=== PATIENT | male | born 1935 | race Caucasian/White ===

== ENCOUNTER 2016-04-14 08:44 | Outpatient (CLI) ==
[2016-04-14 09:12] LABS: BASOPHILS # (AUTO) 0.1 K/uL (0-0.2); BASOPHILS % (AUTO) 0.5 % (0.0-3.0); EOSINOPHILS # (AUTO) 0.4 K/ul (0.0-0.7); EOSINOPHILS % (AUTO) 3.9 % (0.0-7.0); HEMATOCRIT 34.1 % (42.0-52.0); HEMOGLOBIN 11.3 g/dl (14.0-18.0); IMMATURE GRANULOCYTE % (AUTO) 0.2 % (0.0-5.0); LYMPHOCYTES # (AUTO) 1.7 K/uL (0.60-3.4); LYMPHOCYTES % (AUTO) 17.6 (10.0-50.0); MEAN CORPUSCULAR HEMOGLOBIN 30.1 pg (27.0-31.0); MEAN CORPUSCULAR HGB CONC 33.1 (31.8-35.4); MEAN CORPUSCULAR VOLUME 90.7 fl (80.0-94.0); MONOCYTES # (AUTO) 0.8 K/uL (0.4-2.0); MONOCYTES % (AUTO) 8.6 (0-10); NEUTROPHILS # (AUTO) 6.6 K/ul (2.0-6.9); NEUTROPHILS % (AUTO) 69.2; PLATELET COUNT 292 10^3/uL (140-440); RED BLOOD COUNT 3.76 10^6/ul (4.70-6.10)
[2016-04-14 10:11] LABS: ALBUMIN 2.9 g/dL (3.4-5.0); ALBUMIN/GLOBULIN RATIO 0.74; ANION GAP 14.4; BILIRUBIN,TOTAL 0.32 mg/dL (0.00-1.20); BUN/CREATININE RATIO 11.62; CREATININE 1.72 mg/dL (0.60-1.10); POTASSIUM 4.4 mmol/L (3.5-5.1); TOTAL PROTEIN 6.8 g/dL (5.8-8.1)
== END 2016-04-14 08:45 | disposition home or self-care (01) ==
LOC: LAB 08:44
PROVIDERS: ATTEND Family Medicine
DX: E78.5 Hyperlipidemia, unspecified (principal); I10 Essential (primary) hypertension; R73.9 Hyperglycemia, unspecified; E03.9 Hypothyroidism, unspecified; D64.9 Anemia, unspecified; I67.9 Cerebrovascular disease, unspecified; Z86.73 Personal history of transient ischemic attack (TIA), and cerebral infarction without residual deficits
CPT/HCPCS: 36415; 80053; 80061; 84439; 84443; 85025

== ENCOUNTER 2016-09-16 08:19 | Outpatient (CLI) ==
[2016-09-16 08:42] LABS: BASOPHILS # (AUTO) 0.1 K/uL (0-0.2); BASOPHILS % (AUTO) 0.7 % (0.0-3.0); EOSINOPHILS # (AUTO) 0.4 K/ul (0.0-0.7); EOSINOPHILS % (AUTO) 5.9 % (0.0-7.0); HEMATOCRIT 33.3 % (42.0-52.0); HEMOGLOBIN 11.5 g/dl (14.0-18.0); IMMATURE GRANULOCYTE % (AUTO) 0.1 % (0.0-5.0); LYMPHOCYTES # (AUTO) 1.7 K/uL (0.60-3.4); LYMPHOCYTES % (AUTO) 24.7 (10.0-50.0); MEAN CORPUSCULAR HEMOGLOBIN 30.8 pg (27.0-31.0); MEAN CORPUSCULAR HGB CONC 34.5 (31.8-35.4); MEAN CORPUSCULAR VOLUME 89.3 fl (80.0-94.0); MONOCYTES # (AUTO) 0.7 K/uL (0.4-2.0); MONOCYTES % (AUTO) 10.2 (0-10); NEUTROPHILS # (AUTO) 4.1 K/ul (2.0-6.9); NEUTROPHILS % (AUTO) 58.4; PLATELET COUNT 141 10^3/uL (140-440); RED BLOOD COUNT 3.73 10^6/ul (4.70-6.10); WHITE BLOOD COUNT 6.96 K/ul (4.2-10.2)
[2016-09-16 08:50] LABS: BILIRUBIN,URINE Negative (NEGATIVE); KETONES,URINE Negative (NEGATIVE); LEUKOCYTE ESTERASE ,URINE Negative (NEGATIVE); NITRITE,URINE Negative (NEGATIVE); PH,URINE 6.5 (5-9); PROTEIN,URINE 3+ (NEGATIVE); URINE, BLOOD 1+ (NEGATIVE)
[2016-09-16 08:55] LABS: ADD URINE MICROSCOPIC YES
[2016-09-16 09:24] LABS: ALBUMIN 3.1 g/dL (3.4-5.0); ALBUMIN/GLOBULIN RATIO 1.19; ANION GAP 12.2; BILIRUBIN,TOTAL 0.59 mg/dL (0.00-1.20); BUN/CREATININE RATIO 13.2; CALCIUM 8.8 mg/dL (8.2-10.2); CHOL/HDL RATIO 3.8 (4.5-6.4); CREATININE 2.12 mg/dL (0.60-1.10); POTASSIUM 4.2 mmol/L (3.5-5.1); TOTAL PROTEIN 5.7 g/dL (5.8-8.1)
== END 2016-09-16 08:20 | disposition home or self-care (01) ==
LOC: LAB 08:19
PROVIDERS: ATTEND Family Medicine
DX: E78.5 Hyperlipidemia, unspecified (principal); I10 Essential (primary) hypertension; I25.10 Atherosclerotic heart disease of native coronary artery without angina pectoris; I65.29 Occlusion and stenosis of unspecified carotid artery; E03.9 Hypothyroidism, unspecified; N18.9 Chronic kidney disease, unspecified; C80.1 Malignant (primary) neoplasm, unspecified; Z86.73 Personal history of transient ischemic attack (TIA), and cerebral infarction without residual deficits
CPT/HCPCS: 36415; 80053; 80061; 81001; 84439; 84443; 85025; 86140

== ENCOUNTER 2016-09-19 09:48 | Outpatient (CLI) | END 2016-09-19 09:49 | disposition home or self-care (01) | LOC: CAR 09:48 | PROVIDERS: ATTEND Family Medicine | DX: I10 Essential (primary) hypertension (principal); I25.10 Atherosclerotic heart disease of native coronary artery without angina pectoris; E03.9 Hypothyroidism, unspecified; I63.9 Cerebral infarction, unspecified; I49.9 Cardiac arrhythmia, unspecified; Z85.9 Personal history of malignant neoplasm, unspecified | CPT/HCPCS: 93005; 93010 ==

== ENCOUNTER 2017-03-02 06:42 | Outpatient (CLI) | END 2017-03-02 06:43 | disposition home or self-care (01) | LOC: CAR 06:42 | PROVIDERS: ATTEND Family Medicine | DX: I25.10 Atherosclerotic heart disease of native coronary artery without angina pectoris (principal); R94.31 Abnormal electrocardiogram [ECG] [EKG]; I10 Essential (primary) hypertension ==

== ENCOUNTER 2017-03-09 08:45 | Outpatient (CLI) ==
[2017-03-09 09:10] LABS: BASOPHILS # (AUTO) 0.1 K/uL (0-0.2); BASOPHILS % (AUTO) 0.8 % (0.0-3.0); EOSINOPHILS # (AUTO) 0.4 K/ul (0.0-0.7); EOSINOPHILS % (AUTO) 5.2 % (0.0-7.0); HEMATOCRIT 31.1 % (42.0-52.0); HEMOGLOBIN 10.6 g/dl (14.0-18.0); IMMATURE GRANULOCYTE % (AUTO) 0.1 % (0.0-5.0); LYMPHOCYTES # (AUTO) 1.7 K/uL (0.60-3.4); MEAN CORPUSCULAR HEMOGLOBIN 31.3 pg (27.0-31.0); MEAN CORPUSCULAR HGB CONC 34.1 (31.8-35.4); MEAN CORPUSCULAR VOLUME 91.7 fl (80.0-94.0); MONOCYTES # (AUTO) 0.7 K/uL (0.4-2.0); MONOCYTES % (AUTO) 9.3 (0-10); NEUTROPHILS # (AUTO) 4.5 K/ul (2.0-6.9); NEUTROPHILS % (AUTO) 61.6; PLATELET COUNT 191 10^3/uL (140-440); RED BLOOD COUNT 3.39 10^6/ul (4.70-6.10); WHITE BLOOD COUNT 7.35 K/ul (4.2-10.2)
[2017-03-09 09:13] LABS: BILIRUBIN,URINE Negative (NEGATIVE); KETONES,URINE Negative (NEGATIVE); LEUKOCYTE ESTERASE ,URINE Trace (NEGATIVE); NITRITE,URINE Negative (NEGATIVE); PROTEIN,URINE 3+ (NEGATIVE); URINE, BLOOD 2+ (NEGATIVE)
[2017-03-09 09:34] LABS: ADD URINE MICROSCOPIC YES
[2017-03-09 09:42] LABS: BACTERIA,URINE TRACE (NOT PRESENT)
[2017-03-09 09:53] LABS: ALBUMIN 2.9 g/dL (3.4-5.0); ALBUMIN/GLOBULIN RATIO 0.88; ANION GAP 10.9; BILIRUBIN,TOTAL 0.39 mg/dL (0.00-1.20); BUN/CREATININE RATIO 14.52; CALCIUM 8.9 mg/dL (8.2-10.2); CHOL/HDL RATIO 4.1 (4.5-6.4); CREATININE 1.79 mg/dL (0.60-1.10); POTASSIUM 3.9 mmol/L (3.5-5.1); TOTAL PROTEIN 6.2 g/dL (5.8-8.1)
== END 2017-03-09 08:46 | disposition home or self-care (01) ==
LOC: LAB 08:45
PROVIDERS: ATTEND Family Medicine
DX: E78.5 Hyperlipidemia, unspecified (principal); E03.9 Hypothyroidism, unspecified; I10 Essential (primary) hypertension; N18.9 Chronic kidney disease, unspecified; I25.10 Atherosclerotic heart disease of native coronary artery without angina pectoris; D49.9 Neoplasm of unspecified behavior of unspecified site
CPT/HCPCS: 36415; 80053; 80061; 81001; 84439; 84443; 85025

== ENCOUNTER 2017-06-11 08:53 | Outpatient (CLI) | END 2017-06-11 08:54 | disposition home or self-care (01) | LOC: CAR 08:53 | PROVIDERS: ATTEND Family Medicine | DX: E78.5 Hyperlipidemia, unspecified (principal); I25.10 Atherosclerotic heart disease of native coronary artery without angina pectoris; I10 Essential (primary) hypertension; E03.9 Hypothyroidism, unspecified; K21.9 Gastro-esophageal reflux disease without esophagitis; Z86.73 Personal history of transient ischemic attack (TIA), and cerebral infarction without residual deficits | CPT/HCPCS: 36415; 80053; 80061; 81001; 82378; 83880; 84439; 84443; 85025; 93005; 93010 ==

== ENCOUNTER 2017-10-02 14:22 | Emergency (ER) ==
[2017-10-02 14:32] VITALS: BP 205/85; TEMP 97.7
[2017-10-02] MEDS ORDERED: TENIVAC IM ONE (15:07)
--- NOTE | 2017-10-02 16:03 | DI ---
EXAM: Four views of the left hand. History: Left hand pain. Findings: Dislocation of the PIP joint of the fifth digit. No fractures are identified. Severe cindy rowing of the first carpal metacarpal joint with subchondral sclerosis and osteophyte formation. Impression: 1. Dislocated PIP joint of the fifth digit. 2. No acute fractures. 3. 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
[2017-10-02] MEDS ORDERED: LIDOCAINE HCL 1% SDV SUBCUT STA (16:32)
--- NOTE | 2017-10-02 17:05 | ED.PDOC ---
General ED Provider: Dr. SARAHI SMITH Chief Complaint: Fall Stated Complaint: left 5th finger injury Time Seen by Physician: 14:30 Mode of Arrival: Wheelchair Information Source: Patient, Family Exam Limitations: No limitations Primary Care Provider: SONY RESENDIZ Nursing and Triage Documentation Reviewed and Agree: Yes Does patient meet sepsis criteria?: No If yes, has appropriate treatment been initiated?: No System Inflammatory Response Syndrome: Not Applicable Sepsis Protocol: For patient's 13 years and over: Temp is 96.8 and below OR 101 and greater Pulse >90 BPM Resp >20/minute Acutely Altered Mental Status Are patient's symptoms suggestive of a new infection, such as: -Pneumonia -Skin, Soft Tissue -Endocarditis -UTI -Bone, Joint Infection -Implantable Device -Acute Abdominal Infection -Wound Infection -Meningitis -Blood Stream Catheter Infection -Unknown Musculoskeletal Complaint Exam - Hand/Wrist Complaint/Exam Location of Pain: Reports: Left, Digit #5 Mechanism of Injury: Reports: Trauma (fall the finger grossly is dislocated ) Symptoms Are: Still present Onset of Pain: Reports: Immediate Initial Severity: Moderate Current Severity: Moderate Location: Reports: Discrete (left 5th finger ) Character: Reports: Dull, Aching Alleviating: Reports: Rest Aggravating: Reports: Movement Associated Signs and Symptoms: Reports: Swelling (dislocated ). Denies: Redness , Bruising, Fever, Weakness, Numbness, Tingling Related History: Reports: Similar episode Dominant Hand: Left (5th finger ) Hand/Wrist Findings: Present: Swelling Review of Systems - Review Of Systems Constitutional: Reports: No symptoms Eyes: Reports: No symptoms Ears, Nose, Mouth, Throat: Reports: No symptoms Respiratory: Reports: No symptoms Cardiac: Reports: No symptoms GI: Reports: No symptoms : Reports: No symptoms Musculoskeletal: Reports: Other (left 5th finger dislocated ) Skin: Reports: No symptoms Neurological: Reports: No symptoms Endocrine: Reports: No symptoms Hematologic/Lymphatic: Reports: No symptoms All Other Systems: Reviewed and Negative Past Medical History - Past Medical History Previously Healthy: Yes Endocrine: Reports: None Cardiovascular: Reports: None Respiratory: Reports: None Hematological: Reports: None Gastrointestinal: Reports: None Genitourinary: Reports: None Neuro/Psych: Reports: None Musculoskeletal: Reports: None Cancer: Reports: None - Surgical History General Surgical History: Reports: None - Family History Family History: Reports: None - Social History Smoking Status: Former smoker Hx Substance Use: No Alcohol Screening: None - Immunizations Tetanus Shot up to Date: No (40 YEARS) Physical Exam - Physical Exam Appearance: Well-appearing, No pain distress, Well-nourished Eyes: KYLE, EOMI, Conjunctiva clear ENT: Ears normal, Nose normal, Oropharynx normal Respiratory: Airway patent, Breath sounds clear, Breath sounds equal, Respirations nonlabored Cardiovascular: RRR, Pulses normal, No rub, No murmur GI/: Soft, Nontender, No masses, Bowel sounds normal, No Organomegaly Musculoskeletal: Limited ROM (dislocated left 5th finger at pip joint) Skin: Warm, Dry (skin ear left forearm no f/b), Normal color Neurological: Sensation intact, Motor intact, Reflexes intact, Cranial nerves intact, Alert, Oriented Psychiatric: Affect appropriate, Mood appropriate Procedures - Joint Reduction Indications: Present: Dislocation. Absent: Distal pulse absent Joint Reduction Site: Other (left 5th digit) Conscious Sedation: No Nerve Block Used: Yes Reduction Attempts: 1 Post Joint Reduction Film: Joint reduced Critical Care Note - Critical Care Note Total Time (mins): 0 Course - Course Orders, Labs, Meds: Orders Category Date Time Status Lidocaine HCl/Pf [Lidocaine HCl 1% Sdv] MEDS 10/02/17 16:32 Discontinued 5 ml SUBCUT ONCE STA Tetanus and Diphtheria Tox/Pf [Tenivac] MEDS 10/02/17 15:07 Discontinued 0.5 ml IM .ONCE ONE FINGER(S), LEFT MIN 2V Stat RADS 10/02/17 17:02 Completed HAND, LEFT 3 VIEWS Stat RADS 10/02/17 15:07 Completed Medications Discontinued Medications Generic Name Dose Route Start Last Admin Trade Name Freq PRN Reason Stop Dose Admin Lidocaine HCl 5 ml 10/02/17 16:32 10/02/17 16:57 Lidocaine Hcl 1% Sdv SUBCUT 10/02/17 16:33 5 ml ONCE STA Administration Tetanus/Diphtheria Toxoids Adsorbed 0.5 ml 10/02/17 15:07 10/02/17 15:24 Tenivac IM 10/02/17 15:08 0.5 ml .ONCE ONE Administration Vital Signs: Temp Pulse Resp BP Pulse Ox 10/02/17 14:25 97.7 F 66 22 205/85 H 95 Departure - Departure Time of Disposition: 17:07 Disposition: HOME SELF-CARE Discharge Problem: Dislocation, finger closed Qualifiers: Encounter type: initial encounter Qualified Code(s): S63.259A - Unspecified dislocation of unspecified finger, initial encounter Laceration of forearm Qualifiers: Encounter type: initial encounter Laterality: left Qualified Code(s): S51.812A - Laceration without foreign body of left forearm, initial encounter Instructions: Finger Dislocation (ED), Finger Sprain (ED) Condition: Good Pt referred to PMD for follow-up: Yes IPMP verified?: No Additional Instructions: FOLLOW UP WITH PCP Allergies/Adverse Reactions: Allergies No Known Allergies Allergy (Unverified 10/02/17 14:24) Disposition Discussed With: Patient
--- NOTE | 2017-10-02 17:30 | DI ---
EXAM: Left fifth finger, PA, lateral, oblique views HISTORY: Postreduction FINDINGS: The previously dislocated middle phalanx of the fifth digit has been reduced since 10/03/19 18. The distal phalanx of the fifth finger is hyperextended at the distal interphalangeal joint spac e. No fractures are appreciated. The bones are osteopenic. There is mild narrowing of the fifth pr oximal and distal interphalangeal joint spaces. OPINION: Interval reduction of the previously dislocated middle phalanx. Nonspecific hyperextension of the distal fifth finger. No acute fractures.
== END 2017-10-02 17:45 | disposition home or self-care (01) ==
LOC: ED 14:22
DX: S63.297A Dislocation of distal interphalangeal joint of left little finger, initial encounter (principal); S51.812A Laceration without foreign body of left forearm, initial encounter; W19.XXXA Unspecified fall, initial encounter
CPT/HCPCS: 90471; 90714; 99283

== ENCOUNTER 2017-10-27 08:50 | Outpatient (CLI) | END 2017-10-27 08:51 | disposition home or self-care (01) | LOC: LAB 08:50 | PROVIDERS: ATTEND Family Medicine | DX: E78.5 Hyperlipidemia, unspecified (principal); I10 Essential (primary) hypertension; E03.9 Hypothyroidism, unspecified; Z86.73 Personal history of transient ischemic attack (TIA), and cerebral infarction without residual deficits; Z85.828 Personal history of other malignant neoplasm of skin; Z85.819 Personal history of malignant neoplasm of unspecified site of lip, oral cavity, and pharynx | CPT/HCPCS: 36415; 80053; 80061; 81001; 84439; 84443; 85025 ==

== ENCOUNTER 2018-03-01 08:43 | Outpatient (CLI) | END 2018-03-01 08:44 | disposition home or self-care (01) | LOC: LAB 08:43 | PROVIDERS: ATTEND Family Medicine | DX: E78.5 Hyperlipidemia, unspecified (principal); I10 Essential (primary) hypertension; E03.9 Hypothyroidism, unspecified; Z86.73 Personal history of transient ischemic attack (TIA), and cerebral infarction without residual deficits; Z85.828 Personal history of other malignant neoplasm of skin | CPT/HCPCS: 36415; 80053; 80061; 81001; 84439; 84443; 85025; 87086 ==

== ENCOUNTER 2018-12-02 07:55 | Outpatient (CLI) ==
--- NOTE | 2018-12-02 09:38 | CT ---
EXAM: CT ABDOMEN AND PELVIS HISTORY: Abdominal pain TECHNIQUE: CT abdomen and pelvis without intravenous contrast. Images were reconstructed using 5 mm section thickness. Reformations were prepared. COMPARISON: 07/04/2008 FINDINGS: Diagnostic limitations may exist without including contrast enhanced images. Liver demonstrates mult iple small ill-defined low attenuation lesions most of which measure slightly greater than a centimet er. These are new since the significantly dated prior study. Spleen is within normal limits. Gallb ladder and pancreas are grossly unremarkable. No adrenal masses. Interval removal of the left kidne y since prior study. There is moderate right hydronephrosis and ureteral dilatation. Urinary bladde r has asymmetric wall thickening. Prostate is not clearly seen. There are multiple surgical clips i n the anatomic pelvis. No ureteral calculi are present. Severe atherosclerotic disease is noted. Scattered small retroperitoneal, mesenteric and pelvic lymp h nodes are present. More prominent nonspecific bilateral inguinal lymph nodes are identified. Stom ach is within normal limits. No appendix is identified. There is no evidence of bowel obstruction. There is no ascites. Diffuse abdominal and subcutaneous fat stranding suggesting a generalized arlyn atous state. Small fatty bilateral inguinal hernias present. Bones reveal numerous small sclerotic lesions throughout most of the visualized skeleton. No pneumoperitoneum is seen. See also same day CT thorax report. IMPRESSION: 1. Unexpected finding. Right renal obstruction likely related to asymmetrically thickened urinary b ladder. Cannot exclude bladder neoplasia. Previous left nephrectomy. 2. Diffuse metastatic disease to the bones. Metastatic disease to the liver is suggested. 3. Severe atherosclerotic disease.
--- NOTE | 2018-12-02 12:13 | CT ---
EXAM: CT chest without contra HISTORY: Chest pain COMPARISON: 07/04/2008 TECHNIQUE: CT chest performed without intravenous contrast. Coronal and sagittal reformatted images obtained. FINDINGS: The thoracic inlet unremarkable. Heart top normal in size. Coronary calcifications. Kristy luation aorta normal in caliber. Moderate atherosclerosis. Evaluation for lymphadenopathy limited w ithout contrast. No lymphadenopathy identified. Calcified mediastinal and hilar lymph nodes, consis tent with old granulomatous disease. Tracheostomy. Central airway patent. Mild emphysema. Biapica l scarring medially. No airspace consolidation. Scattered subsegmental atelectasis and/or scarring . Trace left pleural effusion. No pneumothorax. No new or suspicious pulmonary nodules identified. Please refer to separate report CT abdomen pelvis regarding findings in the abdomen pelvis, noting numerous liver lesions, and right hydronephrosis and left nephrectomy, incompletely imaged. IMPRESSION: 1. Unexpected finding: Diffuse osseous metastasis. 2. Unexpected finding: Please refer to separate report CT abdomen pelvis regarding findings in the upper abdomen, noting numerous liver lesions that are likely metastatic as well as right hydronephros is and left nephrectomy, incompletely imaged. 3. Trace left pleural effusion. 4. Emphysema 5. Atherosclerosis
== END 2018-12-02 07:56 | disposition home or self-care (01) ==
LOC: RAD 07:55
PROVIDERS: ATTEND Internal Medicine
DX: R10.9 Unspecified abdominal pain (principal); R07.9 Chest pain, unspecified; N19 Unspecified kidney failure
CPT/HCPCS: 81050; 82575; 84156

== ENCOUNTER 2018-12-22 10:46 | Inpatient (IN) ==
[2018-12-22 10:51] VITALS: BMI 20.9
--- NOTE | 2018-12-22 13:06 | ED.PDOC ---
General ED Provider: Dr. GEREMIAS KHAN Chief Complaint: Weakness Stated Complaint: Anemia Mode of Arrival: Walk-In Information Source: Patient Primary Care Provider: LUÍS CAI Sepsis Protocol: For patient's 13 years and over: Temp is 96.8 and below OR 101 and greater Pulse >90 BPM Resp >20/minute Acutely Altered Mental Status Are patient's symptoms suggestive of a new infection, such as: -Pneumonia -Skin, Soft Tissue -Endocarditis -UTI -Bone, Joint Infection -Implantable Device -Acute Abdominal Infection -Wound Infection -Meningitis -Blood Stream Catheter Infection -Unknown Past Medical History - Past Medical History Previously Healthy: Yes Endocrine: Reports: None Cardiovascular: Reports: None Respiratory: Reports: None Hematological: Reports: None Gastrointestinal: Reports: None Genitourinary: Reports: None Neuro/Psych: Reports: None Musculoskeletal: Reports: None Cancer: Reports: None - Surgical History General Surgical History: Reports: None - Family History Family History: Reports: None - Social History Smoking Status: Former smoker Hx Substance Use: No Alcohol Screening: None - Immunizations Tetanus Shot up to Date: No Physical Exam - Physical Exam Appearance: Ill-appearing, Cachectic Ill-appearing: Moderate Pain Distress: Mild Eyes: KYLE, EOMI, Conjunctiva clear ENT: Ears normal, Nose normal, Oropharynx normal Neck: Supple Respiratory: Airway patent, Breath sounds clear, Breath sounds equal, Respirations nonlabored Cardiovascular: RRR, Pulses normal, No rub, No murmur GI/: Soft Musculoskeletal: Normal strength, ROM intact, No edema, No calf tenderness Skin: Warm Neurological: Sensation intact Psychiatric: Affect appropriate Interpretation - EKG Interpretation Time of EKG #1: 15:50 Rate: Normal Rhythm: Sinus (with 1st degree AV block) Ectopy: None [place]: Left ST Segment: Other (Septal infarct age undetermined) Interpretation: Sinus with 1st degree AV BLOCK Physician Notification - Case Discussed Physician Notified: dr cai-Discussed case; lab reviewed; requses admit for treatment Time of Notification: 13:45 (Admit for IV fluids and PRRBC infusion ) Critical Care Note - Critical Care Note Total Time (mins): 30 Course - Course Hematology/Chemistry: 12/22/18 12:32 12/22/18 12:32 Orders, Labs, Meds: Lab Review 12/22/18 12/22/18 12/22/18 12:30 12:32 12:32 WBC 6.74 RBC 2.89 L Hgb 8.5 L Hct 26.9 L MCV 93.1 MCH 29.4 MCHC 31.6 L RDW Coeff of Suha 14.0 Plt Count 186 Immature Gran % (Auto) 1.0 Neut % (Auto) 69.5 Lymph % (Auto) 16.6 [place] % (Auto) 8.2 Eos % (Auto) 4.0 Baso % (Auto) 0.7 Immature Gran # (Auto) 0.1 Neut # (Auto) 4.7 Lymph # (Auto) 1.1 [place] # (Auto) 0.6 Eos # (Auto) 0.3 Baso # (Auto) 0.1 Sodium 139.5 Potassium 4.43 Chloride 110.2 H Carbon Dioxide 23.1 Anion Gap 10.63 BUN 30.4 H Creatinine 2.96 H Estimated GFR (MDRD) 20.00 BUN/Creatinine Ratio 10.27 Glucose 111.2 H Calcium 6.04 L Total Bilirubin 0.35 AST 41.0 ALT 16.8 Alkaline Phosphatase 1211.0 H* Total Protein 6.16 L Albumin 3.14 L Globulin 3.02 Albumin/Globulin Ratio 1.03 Blood Type A POSITIVE Antibody Screen Crossmatch ([facility]) 12/22/18 12:45 WBC RBC Hgb Hct MCV MCH MCHC RDW Coeff of Suha Plt Count Immature Gran % (Auto) Neut % (Auto) Lymph % (Auto) [place] % (Auto) Eos % (Auto) Baso % (Auto) Immature Gran # (Auto) Neut # (Auto) Lymph # (Auto) [place] # (Auto) Eos # (Auto) Baso # (Auto) Sodium Potassium Chloride Carbon Dioxide Anion Gap BUN Creatinine Estimated GFR (MDRD) BUN/Creatinine Ratio Glucose Calcium Total Bilirubin AST ALT Alkaline Phosphatase Total Protein Albumin Globulin Albumin/Globulin Ratio Blood Type A POSITIVE Antibody Screen Negative Crossmatch ([facility]) See Detail Orders Category Date Time Status IV [ED IV/MEDIPORT/POWERPORT] .ONCE EMERGENCY 12/22/18 12:15 Active CBC W/ AUTO DIFF Stat LAB 12/22/18 12:32 Completed CMP [COMPREHENSIVE METABOLIC PANEL] Stat LAB 12/22/18 12:32 Completed TYPE AND SCREEN Stat LAB 12/22/18 12:45 Results 0.9 % Sodium Chloride [Saline Flush] MEDS 12/22/18 12:15 Active 1 syr IVF PRN PRN Medications Generic Name Dose Route Start Last Admin Trade Name Freq PRN Reason Stop Dose Admin Amlodipine Besylate 10 mg 12/23/18 09:00 Norvasc PO DAILY WOLFGANG Atorvastatin Calcium 20 mg 12/23/18 09:00 Lipitor PO DAILY WOLFGANG Furosemide 20 mg 12/23/18 06:30 Lasix Tab PO QDAC WOLFGANG Sodium Chloride 1,000 mls @ 75 mls/hr 12/22/18 15:30 Sodium Chloride IV .[id number] WOLFGANG Levothyroxine Sodium 100 mcg 12/23/18 06:30 Synthroid PO QDAC WOLFGANG Levothyroxine Sodium 25 mcg 12/23/18 06:30 Synthroid PO QDAC WOLFGANG Omeprazole 20 mg 12/23/18 06:30 Prilosec PO QDAC WOLFGANG Ondansetron HCl 4 mg 12/22/18 15:28 Zofran 4 Mg/2 Ml IVP Q6H PRN Nausea Potassium Chloride 10 meq 12/23/18 08:00 Micro-K Cap PO DAILYWM WOLFGANG Sodium Chloride 1 syr 12/22/18 12:15 Saline Flush IVF PRN PRN To flush IV Vital Signs: Temp Pulse Resp BP Pulse Ox 12/22/18 10:46 96.2 F L 83 18 160/54 H 97 Departure - Departure Time of Disposition: 14:15 Disposition: ADMITTED INPATIENT Discharge Problem: Symptomatic anemia, Chronic kidney disease, 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
[2018-12-22] MEDS ORDERED: ZOFRAN 4 MG/2 ML IVP PRN (15:28)
[2018-12-22] MEDS ORDERED: SODIUM CHLORIDE 1,000 ML IV SCH (15:30)
[2018-12-23] MEDS ORDERED: PRILOSEC PO SCH (06:30)
[2018-12-23] MEDS ORDERED: SYNTHROID PO SCH ×2 (06:30)
[2018-12-23] MEDS ORDERED: LASIX TAB PO SCH (06:30)
[2018-12-23] MEDS ORDERED: MICRO-K CAP PO SCH (08:00)
--- NOTE | 2018-12-23 08:31 | PCM.PROG ---
Attending Provider: ATTENDING PROVIDER: Dr. LUÍS SPEAR This patient is seen with Oma Doherty, Nurse Practitioner. DATE OF SERVICE: 12/23/18 SUBJECTIVE: This 83 year old WHITE/ M was hospitalized 12/22/18. The patient is resting comfortably. Hgb is up to 9.8 this morning. He was able to eat some yesterday. Leg edema slightly improved. Kidney function slightly improved. He is ready for coffee this morning. REVIEW OF SYSTEMS: CONSTITUTIONAL: No night sweats. No fatigue, malaise, lethargy. No fever or chills. Weakness. HEENT: Eyes: No visual changes. No eye pain. No eye discharge. ENT: No runny nose. No epistaxis. No sinus pain. No odynophagia. No congestion. RESPIRATORY: No cough, no congestion. No hemoptysis. No shortness of breath. CARDIOVASCULAR: No angina symptoms. No CHF symptoms. No atypical chest pain for CAD. No palpitations. No orthopnea.. GASTROINTESTINAL: No abdominal pain. No nausea or vomiting. No diarrhea or constipation. No hematemesis. No hematochezia. Dysphagia. Weight loss. GENITOURINARY: No urgency. No frequency. No dysuria. No hematuria. No obstructive symptoms. No discharge. No pain. No significant abnormal bleeding. MUSCULOSKELETAL: No musculoskeletal pain; no joint swelling. NEUROLOGICAL: Awake, alert, oriented to time, place and person. No headache. No neck pain. No syncope. No seizures. No dizziness. PSYCHIATRIC: Not anxious. No depression. No suicidal thoughts. No homicidal thoughts. SKIN: No rash. No lesions. No wounds. ENDOCRINE: No unexplained weight loss. No weight gain. HEMATOLOGIC/LYMPHATIC: Anemia. No purpura. No petechiae. No prolonged or excessive bleeding. No palpable lymph nodes. PHYSICAL EXAMINATION: GENERAL: The patient is awake, alert and oriented, lying in bed in no distress. VITAL SIGNS: Temperature 98 F, Pulse 74, Respiratory Rate 18, BP 151/66, Pulse Ox 96% HEENT: Head normocephalic, atraumatic. Eyes: Extraocular muscles are intact. Pupils are equal, round and reactive to light and accommodation. Ears: No lesions. Nose appeared normal. Throat: No exudate or erythema. NECK: Supple. No JVD, no carotid bruit. No lymphadenopathy or thyromegaly. LUNGS: Diminished breath sounds. Clear to auscultation. Percussion note normal. Chest symmetrical. HEART: S1, S2, no S3. No murmurs. No cyanosis or clubbing. No ascites. Pulses: Dorsalis pedis and posterior tibial pulses +1 to +2 both sides. ABDOMEN: Soft. Non-tender. Bowel sounds active. No CVA tenderness. No mass felt. EXTREMITIES: Trace left leg edema. Full range of motion of all extremities, equal. NEUROLOGIC: No focal deficit. Cranial nerves II through XII are grossly intact. No headache, no double vision or headache. SKIN: Not dry. Intact. Turgor-normal. LYMPHATIC: No palpable lymph nodes/no lymphedema. MUSCULOSKELETAL: Normal joints with no swelling. Muscle tone is normal. LAB REVIEW: 12/23/18 05:58 12/23/18 05:58 12/23/18 05:58: Sodium 138.5, Potassium 4.41, Chloride 112.0 H, Carbon Dioxide 22.5, Anion Gap 8.41, BUN 25.6 H, Creatinine 2.61 H, Estimated GFR (MDRD) 24.00 , BUN/Creatinine Ratio 9.80, Glucose 85.2, Calcium 6.49 L, Total Bilirubin 0.60 , AST 46.2, ALT 19.4, Alkaline Phosphatase 1191.0 H*, Total Protein 5.73 L, Albumin 2.80 L, Globulin 2.93, Albumin/Globulin Ratio 0.95 12/23/18 05:58: WBC 8.00, RBC 3.28 L, Hgb 9.8 L, Hct 29.8 L, MCV 90.9, MCH 29.9 , MCHC 32.9, RDW Coeff of Suha 13.9, Plt Count 191, Immature Gran % (Auto) 1.4, Neut % (Auto) 65.2, Lymph % (Auto) 18.5, [place] % (Auto) 9.3, Eos % (Auto) 4.8, Baso % (Auto) 0.8, Immature Gran # (Auto) 0.1, Neut # (Auto) 5.2, Lymph # (Auto ) 1.5, [place] # (Auto) 0.7, Eos # (Auto) 0.4, Baso # (Auto) 0.1 12/23/18 00:25: Hgb 9.6 L, Hct 29.4 L 12/22/18 12:45: Blood Type A POSITIVE, Antibody Screen Negative, Crossmatch ([facility] ) See Detail 12/22/18 12:32: Sodium 139.5, Potassium 4.43, Chloride 110.2 H, Carbon Dioxide 23.1, Anion Gap 10.63, BUN 30.4 H, Creatinine 2.96 H, Estimated GFR (MDRD) 20.00 , BUN/Creatinine Ratio 10.27, Glucose 111.2 H, Calcium 6.04 L, Total Bilirubin 0.35, AST 41.0, ALT 16.8, Alkaline Phosphatase 1211.0 H*, Total Protein 6.16 L, Albumin 3.14 L, Globulin 3.02, Albumin/Globulin Ratio 1.03 12/22/18 12:32: WBC 6.74, RBC 2.89 L, Hgb 8.5 L, Hct 26.9 L, MCV 93.1, MCH 29.4 , MCHC 31.6 L, RDW Coeff of Suha 14.0, Plt Count 186, Immature Gran % (Auto) 1.0 , Neut % (Auto) 69.5, Lymph % (Auto) 16.6, [place] % (Auto) 8.2, Eos % (Auto) 4.0, Baso % (Auto) 0.7, Immature Gran # (Auto) 0.1, Neut # (Auto) 4.7, Lymph # (Auto ) 1.1, [place] # (Auto) 0.6, Eos # (Auto) 0.3, Baso # (Auto) 0.1 12/22/18 12:30: Blood Type A POSITIVE ASSESSMENT: Please see below. 1. Anemia improved after transfusion 2. 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 Weight loss related to dysphagia 4. Left Nephrectomy 5. Acute right renal failure PLAN: 1. Continue IV fluids 2. Will monitor HGB 3. Keep legs elevated 4. The patient has first appointment with Dr. Lauren on Thursday Plan and coordination of the patient's care discussed in the presence of Motorcycle Maker and nurse. SCRIBED BY: CLEMENTE SEXTON Vocational Psychologist scribed while in presence of service performed by Dr. Spear/Oma Doherty APRN on 12/23/18 (075)
[2018-12-23] MEDS ORDERED: NORVASC PO SCH (09:00)
[2018-12-23] MEDS ORDERED: LIPITOR PO SCH (09:00)
[2018-12-23] MEDS ORDERED: NON-FORMULARY MEDICATION (Amlodipine Besylate [Amlodipine Besylate] 10 MG) PO SCH (09:00)
[2018-12-23] MEDS ORDERED: K-DUR PO SCH (09:00)
[2018-12-23] MEDS ORDERED: NON-FORMULARY MEDICATION (Omeprazole [Omeprazole] 20 MG) PO SCH (09:00)
[2018-12-23] MEDS ORDERED: NON-FORMULARY MEDICATION (Levothyroxine Sodium [Levothyroxine Sodium] 125 MCG) PO SCH (09:00)
[2018-12-23] MEDS ORDERED: LASIX TAB PO PRN (09:18)
--- NOTE | 2018-12-23 14:46 | CM.DICTOOL ---
ADMISSION: 12/22/18 14:07 DISCHARGE: 2018 DATE OF SERVICE: 12/23/18 FINAL DIAGNOSIS ANEMIA, IMPROVED BONE/LIVER METASTASIS WEIGHT LOSS R/T DYSPHAGIA ACUTE RENAL FAILURE CKD TIA HTN GERD UTI HYPOTHYROIDISM WEAKNESS THROAT CA BLADDER CA LIVER CA KIDNEY CA W/ NEPHRECTOMY CHRONIC INDWELLING IRENE CATH LAST VITALS Temp Pulse Resp BP Pulse Ox 98.2 F 76 18 142/70 97 12/23/18 1400 12/23/18 1400 12/23/18 1400 12/23/18 1400 12/23/18 1400 TAKE THESE MEDICATIONS AT HOME Amlodipine Besylate (Norvasc) 10 mg PO DAILY [facility] Last Admin: 12/23/18 09:36 Dose: 10 mg PRN Reason: LEG EDEMA Levothyroxine Sodium (Synthroid) 125 mcg PO QDAC [facility] Last Admin: 12/23/18 06:40 Dose: 100 mcg Omeprazole (Prilosec) 20 mg PO QDAC [facility] Last Admin: 12/23/18 06:40 Dose: 20 mg Potassium Chloride (Micro-K Cap) 10 meq PO DAILYWM [facility] Last Admin: 12/23/18 09:36 Dose: 10 meq ALLERGIES morphine Adverse Reaction (Verified 12/22/18 11:10) DISCONTINUED MEDICATIONS NONE NEW PRESCRIPTIONS: NONE SMOKING: FORMER SMOKER DISEASE SPECIFIC EDUCATION: ANEMIA BLOOD TRANSFUSION DEHYDRATION RENAL FAILURE IRENE CATHETER CARE APPOINTMENT WITH DR. BELLA FOLLOW UP APPOINTMENT WITH DR. SPEAR LAB REVIEW: 12/23/18 05:58 12/23/18 05:58 12/23/18 05:58: Sodium 138.5, Potassium 4.41, Chloride 112.0 H, Carbon Dioxide 22.5, Anion Gap 8.41, BUN 25.6 H, Creatinine 2.61 H, Estimated GFR (MDRD) 24.00 , BUN/Creatinine Ratio 9.80, Glucose 85.2, Calcium 6.49 L, Total Bilirubin 0.60 , AST 46.2, ALT 19.4, Alkaline Phosphatase 1191.0 H*, Total Protein 5.73 L, Albumin 2.80 L, Globulin 2.93, Albumin/Globulin Ratio 0.95 12/23/18 05:58: WBC 8.00, RBC 3.28 L, Hgb 9.8 L, Hct 29.8 L, MCV 90.9, MCH 29.9 , MCHC 32.9, RDW Coeff of Suha 13.9, Plt Count 191, Immature Gran % (Auto) 1.4, Neut % (Auto) 65.2, Lymph % (Auto) 18.5, [place] % (Auto) 9.3, Eos % (Auto) 4.8, Baso % (Auto) 0.8, Immature Gran # (Auto) 0.1, Neut # (Auto) 5.2, Lymph # (Auto ) 1.5, [place] # (Auto) 0.7, Eos # (Auto) 0.4, Baso # (Auto) 0.1 12/23/18 00:25: Hgb 9.6 L, Hct 29.4 L 12/22/18 12:45: Blood Type A POSITIVE, Antibody Screen Negative, Crossmatch ([facility] ) See Detail PLAN: DISCHARGE HOME TODAY DIET: REGULAR - MECHANICAL SOFT - TOLERATED ACTIVITY: PLENTY OF REST, GRADUALLY INCREASE ACTIVITY ABLE KEEP LEGS ELEVATED ABOVE LEVEL OF HIPS AT REST AND WHILE SLEEPING YOU HAVE AN APPOINTMENT WITH DR. BELLA IN [place] ON Thursday. PLEASE CALL TO RESCHEDULE IF UNABLE TO KEEP APPOINTMENT. [phone] PLEASE KEEP YOUR FOLLOW UP APPOINTMENT THAT HAS BEEN SCHEDULED WITH DR. SPEAR ON Thursday AT 10 AM. CALL TO RESCHEDULE IF UNABLE TO KEEP APPOINTMENT. [phone]. CODE STATUS: FULL CODE MR. MOSES IS ALERT, ORIENTED X3. HE IS AGREEABLE WITH DISCHARGE HOME TODAY. HE IS INDEPENDENT WITH ADL'S. HE DOES NOT REQUIRE ANY ASSISTIVE DEVICE FOR AMBULATION. HE DOES USE A SHOWER CHAIR. HE RESIDES AT HOME WITH HIS AND SON. HIS DAUGHTER ALSO PROVIDES EMOTIONAL SUPPORT. MR. MOSES HAS A CHRONIC INDWELLING IRENE CATHETER THAT HE IS ABLE TO CARE FOR HIMSELF. BLOOD TINGED URINE NOTED IN COLLECTION BAG, WITH ADEQUATE OUTPUT NOTED. TRACE EDEMA NOTED TO BILATERAL LOWER EXTREMITIES. HE HAS DECLINED REFERRALS FOR PT, OT, ST CONSULTS. APPETITE HAS BEEN GOOD TODAY, HE ATE 100% OF HIS BREAKFAST AND LUNCH. WITHOUT ANY S/S OF ASPIRATION. LAST BM 12/21/18. SKIN PALE, WARM, DRY, AND INTACT. Pancho Spear M.D. Oma Doherty APRN
[2018-12-23 15:45] VITALS: BP 137/57; TEMP 97.9
--- NOTE | 2018-12-26 10:18 | PN ---
DATE OF SERVICE: 12/22/18 - ADMISSION NOTE SUBJECTIVE: 87-year-old white male has been noted to have hemoglobin of 7.5 with hematocrit of 22 a couple of days ago, has been feeling weak. The family called, especially the daughter and reported the weakness. The patient was asked to go to the emergency room to get checked out by the ER physician. The ER physician noted hemoglobin to be 8 with hematocrit of 30, 24. The patient has renal failure with creatinine close to 3 with BUN of 55. REVIEW OF SYSTEMS: CONSTITUTIONAL: Weak and tired. No night sweats. No malaise, lethargy. No fever or chills. HEENT: Eyes: No visual changes. No eye pain. No eye discharge. ENT: No runny nose. No epistaxis. No sinus pain. No sore throat. No odynophagia. No congestion. RESPIRATORY: No cough, no congestion. No hemoptysis. No shortness of breath. CARDIOVASCULAR: No angina symptoms. No CHF symptoms. No atypical chest pain for CAD. No palpitations. No PND. No orthopnea. GASTROINTESTINAL: No abdominal pain. No nausea or vomiting. No diarrhea or constipation. No hematemesis. No hematochezia. GENITOURINARY: No urgency. No frequency. No dysuria. No hematuria. No obstructive symptoms. No discharge. No pain. No significant abnormal bleeding. MUSCULOSKELETAL: No musculoskeletal pain; no joint swelling. NEUROLOGICAL: No headache. No neck pain. No syncope. No seizures. No dizziness. PSYCHIATRIC: Not anxious. No depression. No suicidal thoughts. No homicidal thoughts. SKIN: No rash. No lesions. No wounds. ENDOCRINE: No unexplained weight loss. No weight gain. HEMATOLOGIC/LYMPHATIC: No anemia. No purpura. No petechiae. No prolonged or excessive bleeding. No palpable lymph nodes. PHYSICAL EXAMINATION: GENERAL: The patient is oriented to time, place and person, weak with pallor. VITAL SIGNS: Stable vitals. HEENT: Head normocephalic, atraumatic. Eyes: Extraocular muscles are intact. Pupils are equal, round and reactive to light and accommodation. Ears: No lesions. Nose appeared normal. Throat: No exudate or erythema. Mucous membranes are dry. NECK: Supple. No JVD, no carotid bruit. No lymphadenopathy or thyromegaly. LUNGS: Clear to auscultation. Percussion note normal. Chest symmetrical. HEART: S1, S2, no S3. No murmurs. No cyanosis or clubbing. No ascites. Pulses: Dorsalis pedis and posterior tibial pulses +1 to +2 bilaterally. ABDOMEN: Soft. Nontender. Bowel sounds active. No CVA tenderness. No mass felt. EXTREMITIES: No edema. Full range of motion of all extremities, equal. NEUROLOGIC: No focal deficit. Cranial nerves II through XII are grossly intact. No headache, no double vision or headache. SKIN: Dry. Intact. Turgor - normal. LYMPHATIC: No palpable lymph nodes/no lymphedema. MUSCULOSKELETAL: Normal joints with no swelling. Muscle tone is normal. ASSESSMENT: 1. The patient has right renal obstruction and has left nephrectomy from CA of the kidney. 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 The patient also has metastasis possibly to liver. 2. Emphysema. 3. Esophageal stricture. 4. Tracheostomy. 5. CVA. 6. Dyslipidemia. 7. Malnutrition. PLAN: 1. The patient will be given a couple units of packed red cells as the patient is feeling weak and is symptomatic with anemia. 2. Also the patient will be given slow IV fluid hydration. 3. Will discuss with the patient about hospice. PROGNOSIS: Poor. TIME SPENT: More than 30 minutes. Plan and coordination of the patient's care discussed in the presence of nurseAlex SORIANO
--- NOTE | 2018-12-26 10:23 | PN ---
DATE OF SERVICE: 12/23/18 SUBJECTIVE: The patient was seen and examined this morning with the nurse practitioner. The patient was in Room 121. The patient has metastatic bone cancer along with liver. He has tracheostomy with left nephrectomy, CA of the bladder, is practically end-stage. He was given a couple units of packed red cells. His hemoglobin and hematocrit is stable. Kidney functions are the same as before. He is a DNR. Prognosis is poor. TIME SPENT: More than 30 minutes. Plan and coordination of the patient's care discussed in the presence of nurse. BO
--- NOTE | 2018-12-26 10:24 | PN ---
CODING 12/22/18 ADMISSION DAY LEVEL 5 12/23/18 DISCHARGE MTDD
--- NOTE | 2018-12-29 13:24 | HP ---
DATE OF SERVICE: 12/22/18 REASON FOR HOSPITALIZATION/HISTORY OF PRESENT ILLNESS: 83 year old white male who was a newer patient of ours. He was recently hospitalized at [facility] [facility] after seeing the urologist he had a right renal obstruction. He was discharged with severe anemia at 7.8. He was seen at the office earlier today and once the discharge papers were received his hgb appeared to be 7.8. He was instructed to come to the emergency room. 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 Weight loss Anemia Hypothyroidism Dyslipidemia Leg edema Hypertension History of esophageal cancer Dysphagia PAST SURGICAL HISTORY: Left nephrectomy Tracheostomy due to esophageal cancer Recent right ureteral stent for obstruction REVIEW OF SYSTEMS: CONSTITUTIONAL: No night sweats. Fatigue. No fever or chills.Weakness. HEENT: Eyes: No visual changes. No eye pain. No eye discharge. ENT: No runny nose. No epistaxis. No sinus pain. No sore throat. No odynophagia. No ear pain. No congestion. RESPIRATORY: No cough, no congestion. No hemoptysis. No shortness of breath. CARDIOVASCULAR: No angina symptoms. No CHF symptoms. No atypical chest pain for CAD. No palpitations. No PND. No orthopnea. GASTROINTESTINAL: No abdominal pain. No nausea or vomiting. No diarrhea or constipation. No hematemesis. No hematochezia. Dysphagia. GENITOURINARY: No urgency. No frequency. No dysuria. No hematuria. No obstructive symptoms. No discharge. No pain. No significant abnormal bleeding. MUSCULOSKELETAL: No musculoskeletal pain. No joint swelling. No arthritis. NEUROLOGICAL: No headache. No neck pain. No syncope. No seizures. No dizziness. PSYCHIATRIC: Not anxious. No depression. No suicidal thoughts. No homicidal thoughts. SKIN: No rash. No lesions. No wounds. Pallor ENDOCRINE: No unexplained weight loss. No weight gain. HEMATOLOGIC/LYMPHATIC: Anemia. No purpura. No petechiae. No prolonged or excessive bleeding. No palpable lymph nodes. PERSONAL/FAMILY/SOCIAL HISTORY: The patient is . No history of alcohol or substance abuse. Nonsmoker. MEDICATIONS: K-Dur 10meq PO daily Omeprazole 20mg PO daily Levothyroxine 125mcg PO daily Amlodipine 10mg PO daily ALLERGIES: Morphine PHYSICAL EXAMINATION: VITAL SIGNS: Temperature 96.2, heart rate 83, respiratory rate 18, blood pressure 160/54 and pulse ox 97% HEENT: Head normocephalic, atraumatic. Eyes: Extraocular muscles are intact. Pupils are equal, round and reactive to light and accommodation. Ears: No lesions. Nose appeared normal. Throat: No exudate or erythema. NECK: Supple. No JVD, no carotid bruit. No lymphadenopathy or thyromegaly. LUNGS: Diminished breath sounds. Clear to auscultation. Percussion note normal. Chest symmetrical. Tracheostomy. HEART: S1, S2, no S3. No murmurs. No cyanosis or clubbing. No ascites. Pulses: Dorsalis pedis and posterior tibial pulses +1 to +2 bilaterally. ABDOMEN: Soft. Nontender. Bowel sounds active. No CVA tenderness. No mass felt. EXTREMITIES: Trace bilateral leg edema, left slightly worse than the right. Full range of motion of all extremities, equal. NEUROLOGIC: No focal deficit. Cranial nerves II through XII are grossly intact. No headache, no double vision or headache. SKIN: Not dry. Intact. Turgor - normal. LYMPHATIC: No palpable lymph nodes/no lymphedema. MUSCULOSKELETAL: Normal joints with no swelling. Muscle tone is normal. LABS: WBC 6.74, hgb 8.5, hct 216.9, plt count 186, sodium 139, potassium 4.4, BUN 30, creatinine 2.96, Alkaline phosphatase 1,211, AST 41, ALT 16. Total Protein 6.16 , Albumin 3.14, globulin 3.02. ASSESSMENT: 1. Symptomatic anemia 2. Acute on chronic renal failure 3. Metastatic carcinoma to the bone and liver 4. Dehydration PLAN: 1. Admit 2. Type and cross and administer one unit and hold one unit of packed red blood cells 3. CBC and CMP daily 4. H&H following transfusion of one unit 5. Hold Lipitor 6. Normal saline at 75cc an hour 7. Continue Synthroid 8. T4 TSH 9. Routine telemetry orders 10.Oxygen at 1-2 liters as needed 11.Regular diet We will follow him closely. TIME SPENT: More than 70 minutes. MTDD
--- NOTE | 2018-12-29 13:44 | DS ---
DATE OF SERVICE: 12/23/18 FINAL DIAGNOSIS: 1. ANEMIA, IMPROVED 2. BONE/LIVER METASTASIS 3. WEIGHT LOSS R/T DYSPHAGIA 4. ACUTE RENAL FAILURE 5. CKD 6. TIA 7. HTN 8. GERD 9. UTI 10.HYPOTHYROIDISM 11.WEAKNESS 12.THROAT CA 13.BLADDER CA 14.LIVER CA 15.KIDNEY CA W/ NEPHRECTOMY 16.CHRONIC INDWELLING IRENE CATH LAST VITALS: Temp Pulse Resp BP Pulse Ox 98.2 F 76 18 142/70 97 12/23/18 1400 12/23/18 1400 12/23/18 1400 12/23/18 1400 12/23/18 1400 DISCHARGE INSTRUCTIONS: DISCHARGE HOME TODAY. KEEP LEGS ELEVATED ABOVE LEVEL OF HIPS AT REST AND WHILE SLEEPING. YOU HAVE AN APPOINTMENT WITH DR. LAUREN IN [place] ON Thursday. PLEASE CALL TO RESCHEDULE IF UNABLE TO KEEP APPOINTMENT. . PLEASE KEEP YOUR FOLLOW UP APPOINTMENT THAT HAS BEEN SCHEDULED WITH DR. PUENTE ON Thursday AT 10 AM. CALL TO RESCHEDULE IF UNABLE TO KEEP APPOINTMENT. [phone]. CODE STATUS: FULL CODE. TAKE THESE MEDICATIONS AT HOME: Amlodipine Besylate (Norvasc) 10 mg PO DAILY [place] Levothyroxine Sodium (Synthroid) 125 mcg PO QDAC [place] Omeprazole (Prilosec) 20 mg PO QDAC [place] Potassium Chloride (Micro-K Cap) 10 meq PO DAILYWM [place] ALLERGIES: morphine Adverse Reaction (Verified 12/22/18 11:10) DISCONTINUED MEDICATIONS: NONE NEW PRESCRIPTIONS: NONE SMOKING: FORMER SMOKER DISEASE SPECIFIC EDUCATION: ANEMIA BLOOD TRANSFUSION DEHYDRATION RENAL FAILURE [facility] APPOINTMENT WITH DR. LAUREN FOLLOW UP APPOINTMENT WITH DR. PUENTE DIET: REGULAR - MECHANICAL SOFT - TOLERATED ACTIVITY: PLENTY OF REST, GRADUALLY INCREASE ACTIVITY ABLE HOSPITAL COURSE: This is an 83 year old white male who presented to our office on 12/22/18 following hospital stay at [facility] for right renal obstruction which he had a stent placed in her right ureter. We had no discharge paperwork at the time of his visit. He stated that he was feeling very tired, shortness of breath and he was pale. We called and received records from [facility] after he had already departed showing that his hgb at 7.8 at time of discharge on Thursday. He was then instructed to go to the emergency room for further evaluation. Hgb was found to be 8.5. He is cachetic and has been unable to eat. His creatinine was up to 2.9. 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 It has not been confirmed and the origin however due primarily to be in the bladder. He has a upcoming appointment with Dr. Lauren on Thursday. He was admitted and given one unit of packed red blood cells. Hgb improved to 9.8. He was placed on IV fluids as well, normal saline. Kidney function went down to 1.9 on day of discharge. BUN improved. He was feeling much better. He does not wish to stay in the hospital any longer. He is stable. Anemia is likely due to the metastasis. He has a very poor prognosis. He is contemplating Hospice but wanted to speak Oncology first so we have encouraged him to keep that appointment on Thursday and then he will followup with us in the office later next week. Diet and nutrition has been discussed. Again the poor prognosis has been discussed with the patient as well as the family. They demonstrate understanding. His leg edema did improve after admission with keeping the foot of the bed elevated and his kidney function improved and instructed to drink as much as possible. He reports that all he drinks is coffee. We will follow with him closely. He is discharged in guarded condition. TIME SPENT: More than 60 minutes. BO
== END 2018-12-23 16:05 | disposition home or self-care (01) | DRG 683 ==
LOC: ED 10:46 → MEDSURG B 14:07
PROVIDERS: ADMIT Internal Medicine; ATTEND Internal Medicine
DX: N28.89 Other specified disorders of kidney and ureter; E78.5 Hyperlipidemia, unspecified; J43.9 Emphysema, unspecified; R63.4 Abnormal weight loss; C41.9 Malignant neoplasm of bone and articular cartilage, unspecified; C67.9 Malignant neoplasm of bladder, unspecified; D64.9 Anemia, unspecified; E46 Unspecified protein-calorie malnutrition; N17.9 Acute kidney failure, unspecified; I10 Essential (primary) hypertension; E03.9 Hypothyroidism, unspecified; E86.0 Dehydration; N18.9 Chronic kidney disease, unspecified; R13.10 Dysphagia, unspecified; N39.0 Urinary tract infection, site not specified; K21.9 Gastro-esophageal reflux disease without esophagitis; K22.2 Esophageal obstruction